=== PATIENT | male | born 1985 | race Hispanic/Latino ===

== ENCOUNTER 2018-04-21 15:28 | Emergency (ER) | payer OTHER ==
[2018-04-21] MEDS ORDERED: MAG HYDROX/AL HYDROX/SIMETH ES 30 ML SUSP UDCUP ONE (16:15)
[2018-04-21] MEDS ORDERED: LIDOCAINE HCL 2% VISCOUS 15 ML UDCUP ONE (16:15)
== END 2018-04-21 16:35 | disposition home or self-care (01) ==
LOC: EDH 15:28
DX: K21.9 Gastro-esophageal reflux disease without esophagitis (principal); K29.70 Gastritis, unspecified, without bleeding; Z87.891 Personal history of nicotine dependence

== ENCOUNTER 2018-04-29 12:44 | Emergency (ER) | payer OTHER ==
[2018-04-29 13:31] LABS: BASOPHILS % (AUTO) 0.8 % (0.0-5.0); EOSINOPHILS % (AUTO) 3.7 % (0.0-8.0); HEMATOCRIT 42.7 % (42-54); LYMPHOCYTES % (AUTO) 24.6 % (21.0-51.0); MEAN CORPUSCULAR HEMOGLOBIN 28.3 pg (27.0-33.0); MEAN CORPUSCULAR HGB CONC 34.2 g/dL (32.0-36.0); MEAN CORPUSCULAR VOLUME 82.7 fL (79-99); MONOCYTES % (AUTO) 5.3 % (3.0-13.0); NEUTROPHILS % (AUTO) 65.6 % (40.0-77.0); PLATELET COUNT (AUTO) 298 K/uL (130-400); RED BLOOD CELL COUNT(AUTO) 5.17 MIL/uL (4.50-6.20); RED CELL DISTRIBUTION WIDTH 13.8 % (11.0-15.5); WHITE BLOOD COUNT (AUTO) 6.8 K/uL (4.8-10.8)
[2018-04-29 13:37] LABS: POTASSIUM 3.6 mmol/L (3.5-5.1)
[2018-04-29 13:44] LABS: ALBUMIN 4.2 g/dL (3.5-5.0); BILIRUBIN,TOTAL 0.5 mg/dL (0.2-1.0); TOTAL PROTEIN, SERUM 8.4 g/dL (6.0-8.3)
== END 2018-04-29 13:48 | disposition home or self-care (01) ==
LOC: EDH 12:44
DX: F41.1 Generalized anxiety disorder (principal); R20.2 Paresthesia of skin; Z87.891 Personal history of nicotine dependence
CPT/HCPCS: 36415; 80053; 85025

== ENCOUNTER 2019-02-23 00:14 | Emergency (ER) | payer OTHER ==
[2019-02-23] MEDS ORDERED: MAG HYDROX/AL HYDROX/SIMETH ES 30 ML SUSP UDCUP ONE (00:53)
[2019-02-23] MEDS ORDERED: LIDOCAINE HCL 2% VISCOUS 15 ML UDCUP ONE (00:53)
[2019-02-23 00:57] LABS: BASOPHILS % (AUTO) 0.2 % (0.0-5.0); EOSINOPHILS % (AUTO) 4.6 % (0.0-8.0); HEMATOCRIT 43.5 % (42-54); LYMPHOCYTES % (AUTO) 24.2 % (21.0-51.0); MEAN CORPUSCULAR HEMOGLOBIN 29.2 pg (27.0-33.0); MEAN CORPUSCULAR HGB CONC 34.3 g/dL (32.0-36.0); MEAN CORPUSCULAR VOLUME 85.2 fL (79-99); MONOCYTES % (AUTO) 7.4 % (3.0-13.0); NEUTROPHILS % (AUTO) 63.6 % (40.0-77.0); NUCLEATED RED BLOOD CELLS 0.2 % (0.0-0.19); PLATELET COUNT (AUTO) 257 K/uL (130-400); RED BLOOD CELL COUNT(AUTO) 5.11 MIL/uL (4.50-6.20); WHITE BLOOD COUNT (AUTO) 8.1 K/uL (4.8-10.8)
[2019-02-23 01:09] LABS: CREATININE 0.8 mg/dL (0.5-1.5); POTASSIUM 4.1 mmol/L (3.5-5.1)
[2019-02-23 01:13] LABS: ALBUMIN 4.3 g/dL (3.5-5.0); BILIRUBIN,TOTAL 0.4 mg/dL (0.2-1.0); TOTAL PROTEIN, SERUM 8.2 g/dL (6.0-8.3)
== END 2019-02-23 01:49 | disposition home or self-care (01) ==
LOC: EDH 00:14
DX: K21.9 Gastro-esophageal reflux disease without esophagitis (principal); R03.0 Elevated blood-pressure reading, without diagnosis of hypertension; Z72.0 Tobacco use
CPT/HCPCS: 36415; 80053; 83690; 85025